=== PATIENT | male | born 1990 | race Caucasian/White ===

== ENCOUNTER 2016-11-13 19:56 | Emergency (ER) | payer OTHER ==
[~2016-11-13 19:56] MED LIST: ALPRAZOLAM0.5 M3 PO; ALPRAZOLAM0.5 MG PO; ALPRAZOLAM1 M2 PO; AUGMENTIN 875875 MG PO; CLONAZEPAM0.5 MG PO; ESCITALOPRAM OX20 MG; LEXAPRO 20MG M20 MG PO; LORAZEPAM1 MG PO; MULTIVITAMIN1 TAB PO; PHENERGAN25 M2 PO; SERTRALINE HYD100 MG PO; TYLENOL XSTR500 MG PO; ZOFRAN ODT4 MG PO; ZOFRAN4 M2 PO
[2016-11-13 20:10] VITALS: BP 146/82
--- NOTE | 2016-11-13 21:09 | ED GI/GU/ABDOMINAL COMPLAINT ---
History of Present Illness General Chief Complaint: Male Genitourinary Problems Stated Complaint: MULTIPLE COMPLAINTS Source: patient Exam Limitations: no limitations Vital Signs & Intake/Output Vital Signs & Intake/Output Vital Signs Date Time Temp Pulse Resp B/P Pulse O2 O2 Flow FiO2 Ox Delivery Rate 11/13 2009 97.6 80 22 146/82 98 Allergies Coded Allergies: cephalexin (UNKNOWN PER PT 11/17/15) ciprofloxacin (From CIPRO) (BAD STOMACH ACHE, DIZZY 11/17/15) sulfamethoxazole (From Bactrim) (STOMACH UPSET AND HEADACHE 11/17/15) trimethoprim (From Bactrim) (STOMACH UPSET AND HEADACHE 11/17/15) Reconcile Medications Alprazolam 1 MG TABLET 1 TAB PO BID ANXIETY (Reported) Augmentin (Augmentin 500-125 Tablet) 500 MG-125 MG TABLET 1 TAB PO BID UTI Escitalopram Oxalate (Unknown Strength) TABLET (Unknown Dose) UNKNOWN ( Reported) Ondansetron HCl (Zofran) (Unknown Strength) TABLET (Unknown Dose) PO ONCE NAUSEA (Reported) Promethazine HCl (Phenergan) 25 MG SUPP.RECT 1 TAB PO Q8H PRN NAUSEA PLEASE PROVIDE ORAL TABLETS, NOT SUPPOSITORY Triage Note: PER PT HAD FLU LIKE SYMPTOMS X 3 WEEKS 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 NOW FEELING NO ENERGY. Triage Nurses Notes Reviewed? yes Onset: Gradual Duration: constant Timing: recent history Quality/Severity: mild Severity Numbers: 3 Location: urethral Radiation: no radiation HPI: Patient is a 26-year-old male with a unremarkable past medical history presents emergency and that the past 4 days patient had gradual onset of white milky urethral discharge testicular discomfort and dysuria and pain with urination. Patient has been sexually active with multiple partners using unprotected sex Denies any fever or chills abdominal pain nausea vomiting. (BALDO MCARTHUR) Past History Travel History Traveled to [place] past 21 day No Medical History Any Pertinent Medical History? 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 No (BALDO MCARTHUR) Review of Systems Review of Systems Constitutional: Reports: no symptoms. EENTM: Reports: no symptoms. Respiratory: Reports: no symptoms. Cardiovascular: Reports: no symptoms. GI: Reports: no symptoms. Genitourinary: Reports: see HPI, dysuria. Musculoskeletal: Reports: no symptoms. Skin: Reports: no symptoms. Neurological/Psychological: Reports: no symptoms. Hematologic/Endocrine: Reports: no symptoms. Immunologic/Allergic: Reports: no symptoms. 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 Cardiovascular: Regular rate and rhythms no murmurs rubs or gallops, normal JVP Respiratory: Chest nontender. No respiratory distress.breath sounds clear to auscultation bilaterally Abdomen: Soft, nontender nondistended, no appreciable organomegaly. Normal bowel sounds. No ascites Extremity: No edema, no calf tenderness to palpation, normal and equal pulses. Neuro: Alert oriented x3, motor sensory normal, Skin: No appreciable rash on exposed skin, skin is warm and dry. Psych: Mood and affect is normal, memory and judgment is normal. Core Measures ACS in differential dx? No Severe Sepsis Present: No Septic Shock Present: No (BALDO MCARTHUR) Progress Differential Diagnosis: AAA, AMI, appendicitis, biliary colic, bowel obstruction , colon cancer, cholecystitis, diverticulitis, epididymitis, esophageal varices, gastritis, hepatitis, hernia, hemorrhoids, ischemic bowel, inflamm bowel dis, Ginger-Manan tear, orchitis, pancreatitis, prostatitis, peptic ulcer, PUD/GERD, perforated viscous, pyelonephritis, SBO, STD, testicular torsion, ureterolithiasis, urinary retention, urethritis, UTI/pyelo Plan of Care: Orders Procedure Date/time Status CULTURE,URINE 11/14 2011 Active CHLAMYDIA-GC DNA PROBE 11/14 2011 Active URINALYSIS 11/14 2011 Complete Laboratory Tests 11/13/16 2041: Urine Color YEL, Urine Clarity CLEAR, Urine pH 6.0, Ur Specific [place] 1.025, Urine Protein NEG, Urine Ketones NEG, Urine Nitrite NEG, Urine Bilirubin NEG, Urine Urobilinogen 0.2, Ur Leukocyte Esterase TRACE H, Ur Microscopic SEDIMENT EXAMINED, Urine RBC RARE, Urine WBC 25-50 H, Ur Epithelial Cells FEW, Urine Bacteria FEW H, Urine Hemoglobin TRACE-INTACT H, Urine Glucose NEG Microbiology 11/13 2040 URINE ROUT: GC DNA Probe - RECD 11/13 2040 URINE ROUT: Chlamydia DNA Probe (ISABELA) - RECD 11/13 2040 URINE ROUT: Urine Culture - RECD Patient currently is in no apparent distress no signs at this time of testicular torsion. Patient will be treated prophylactically for concerns of gonorrhea and chlamydia and will be treated for UTI and was strongly advised to follow-up with culture results and if urine tract infection was persistent to follow up with urology and he will comply. (BALDO MCARTHUR) Initial ED EKG: none (BALDO MCARTHUR) Departure Departure Disposition: HOME OR SELF CARE Condition: Stable Clinical Impression Primary Impression: STD (male) Secondary Impressions: UTI (urinary tract infection) Referrals: YUMIKO PAGE,KERRI Caruso (PCP/Family) ADINA BRAUN MD Additional Instructions: As discussed begin the prescription of Augmentin as directed for the full course. YOU had received azithromycin and Rocephin in the emergency room for your symptoms. Please do not participate in sexual activities for 7 or more days. Please use protection when having sex. If symptoms worsen return to the emergency room. If no better in one week follow-up with urologist Dr. Braun. If positive for your test please let your partners know so they can be treated Departure Forms: Customer Survey General Discharge Information Prescriptions: Current Visit Scripts Augmentin (Augmentin 500-125 Tablet) 1 TAB PO BID #14 TAB (BALDO MCARTHUR) PA/SNACK STEWARDESS Co-Sign Statement Statement: ED Attending supervision documentation- [] I saw and evaluated the patient. I have also reviewed all the pertinent lab results and diagnostic results. I agree with the findings and the plan of care as documented in the PA's/SNACK STEWARDESS's documentation. [X] I have reviewed the ED Record and agree with the PA's/SNACK STEWARDESS's documentation. [] Additions or exceptions (if any) to the PAs/SNACK STEWARDESS's note and plan are summarized below: [] (SHERMAN PAGE,DORIS Killian)
[2016-11-13] MEDS ORDERED: AUGMENTIN 500-1 EACH PO (21:43)
== END 2016-11-13 21:57 ==
LOC: ERH 19:56
DX: N39.0 Urinary tract infection, site not specified (principal); A64 Unspecified sexually transmitted disease
CPT/HCPCS: 81001; 87086; 87491; 87591; 96372; J0456; J0696

== ENCOUNTER 2016-12-21 10:00 | Emergency (ER) | payer OTHER ==
[~2016-12-21] VITALS: Ht 185.4 cm; Wt 136.1 kg
[~2016-12-21 10:00] MED LIST changes: +AUGMENTIN 500-1 EACH PO
[2016-12-21 10:27] VITALS: BP 124/73
--- NOTE | 2016-12-21 11:20 | ED SYNCOPE COMPLAINT ---
History of Present Illness General Chief Complaint: Syncope and Near-Syncope Stated Complaint: BIBA SYNCOPE Source: patient, old records, EMS Exam Limitations: no limitations Vital Signs & Intake/Output Vital Signs & Intake/Output Vital Signs Date Time Temp Pulse Resp B/P B/P Pulse O2 O2 Flow FiO2 Mean Ox Delivery Rate 12/21 1027 97.8 80 15 124/73 97 Room Air Room Air Allergies Coded Allergies: cephalexin (UNKNOWN PER PT 12/21/16) ciprofloxacin (From CIPRO) (BAD STOMACH ACHE, DIZZY 12/21/16) sulfamethoxazole (From Bactrim) (STOMACH UPSET AND HEADACHE 12/21/16) trimethoprim (From Bactrim) (STOMACH UPSET AND HEADACHE 12/21/16) Reconcile Medications Alprazolam 1 MG TABLET 1 TAB PO BID ANXIETY (Reported) Augmentin (Augmentin 500-125 Tablet) 500 MG-125 MG TABLET 1 TAB PO BID UTI Doxycycline Hyclate (Vibramycin) 100 MG CAPSULE 1 CAP PO BID sinusitis Escitalopram Oxalate (Unknown Strength) TABLET (Unknown Dose) UNKNOWN ( Reported) Ondansetron HCl (Zofran) (Unknown Strength) TABLET (Unknown Dose) PO ONCE NAUSEA (Reported) Promethazine HCl (Phenergan) 25 MG SUPP.RECT 1 TAB PO Q8H PRN NAUSEA PLEASE PROVIDE ORAL TABLETS, NOT SUPPOSITORY Triage Note: PT TO ED FOR SYNCOPAL EPISODE AT WORK, PT HAS BEEN FEELING WEAK AND TIRED FOR A COUPLE OF WEEKS, PT HAS CHRONIC SINUSITIS AND REPORTS BEING SICK RECENTLY AND EVER SINCE THEN HAS BEEN HAVING INTERMITTENT FEELINGS LIKE HE IS GOING TO PASS OUT. PT REPORTS TODAY IS THE FIRST TIME PT HAS ACTUALLY PASSED OUT. PT STATES HE FEELS LIKE HIS HEART STOPS BEATING AND THEN HE "GETS AN ELECTRIC SHOCK" AND THEN FEELS LIKE HE'S GOING TO PASS OUT. Triage Nurses Notes Reviewed? yes HPI: Patient is a 26-year-old male presents complaining of syncopal episode. Patient was sitting at work when the syncopal episode occurred. Patient reports that he awoke today feeling fatigued, anxious. Patient has been lightheaded for a couple of hours at work, lightheadedness became severe for approximately 10 seconds, had a room spinning sensation and have the syncopal episode while sitting in the guard station. Patient believes he was unconscious for a few seconds. Patient reports he has had multiple syncopal episodes previously. Patient had a Holter monitor ordered by his primary care doctor which was reportedly unremarkable. Patient has not seen a hospital supervisor previously. Patient has been on Augmentin for sinusitis with no improvement. Patient denies chest pain, illicit substance use. Past History Travel History Traveled to [place] past 21 day No Medical History Any Pertinent Medical History? 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 No Review of Systems Review of Systems Constitutional: Reports: malaise, weakness. Denies: chills, fever. EENTM: Reports: no symptoms. Respiratory: Denies: cough, short of breath. Cardiovascular: Reports: see HPI. GI: Denies: abdominal pain, nausea, vomiting. Genitourinary: Reports: no symptoms. Musculoskeletal: Reports: no symptoms. Skin: Reports: no symptoms. Neurological/Psychological: Reports: no symptoms. Physical Exam Physical Exam General Appearance: well developed/nourished, alert, awake Head: atraumatic, normal appearance Eyes: Bilateral: normal appearance, PERRL, EOMI. Ears, Nose, Throat: Clear fluid posterior to the tympanic membranes. Bilateral maxillary sinus tenderness Neck: normal inspection, supple, full range of motion Respiratory: normal breath sounds, chest non-tender, no respiratory distress, lungs clear Cardiovascular: regular rate/rhythm (no appreciable murmur) Gastrointestinal: normal bowel sounds, soft, non-tender Back: normal inspection, normal range of motion Extremities: normal inspection, normal capillary refill, normal range of motion, no edema, no calf tenderness Psychiatric: awake, alert, oriented x 3 Cranial Nerves: normal hearing, normal speech, PERRL Coordination/Gait: normal gait Motor/Sensory: no motor/sensory deficits Skin: intact, normal color, warm/dry Core Measures ACS in differential dx? Yes ASA ordered for poss ACS? No-ACS ruled out CVA/TIA Diagnosis: No Severe Sepsis Present: No Septic Shock Present: No Progress Differential Diagnosis: AMI, aortic dissection, aortic valve, drug induced syncope, hyperventilation, orthostatic syncope, other valvular disease, pericardial tamponade, pulmonary embolus, seizure, sick sinus syndrome, subarachnoid hem., TIA/CVA, vasodepressor syncope, ventricular tach/fib Plan of Care: Orders Procedure Date/time Status MISTAKE 12/21 1134 Active Telemetry/Shuttle Driver 12/21 1134 Active TROPONIN LEVEL 12/21 1134 Complete COMPREHENSIVE METABOLIC PANEL 12/21 1134 Complete CBC WITHOUT DIFFERENTIAL 12/21 1134 Complete EKG 12/21 1004 Active Laboratory Tests 12/21/16 1151: Anion Gap 10, Estimated GFR > 60, BUN/Creatinine Ratio 18.6, Glucose 86, Calcium 9.3, Total Bilirubin 0.5, AST 30, ALT 65, Alkaline Phosphatase 64, Troponin I < 0.01, Total Protein 6.8, Albumin 4.3, Globulin 2.5, Albumin/Globulin Ratio 1.7, CBC w Diff NO MAN DIFF REQ, RBC 5.22, MCV 82.7, MCH 28.5, RDW 12.5, MPV 9.8, Gran % 58.3, Lymphocytes % 33.4, Monocytes % 7.1, Eosinophils % 0.9, Basophils % 0.3, Absolute Granulocytes 4.3, Absolute Lymphocytes 2.5, Absolute Monocytes 0.5 , Absolute Eosinophils 0.1, Absolute Basophils 0, PUBS MCHC 34.4 Results of labs, EKG, cardiac catheterization technician discussed with patient. Patient appears stable for discharge with follow-up with his primary care doctor and cardiology. (KARTIK GOODEN,LEANDRO) Initial ED EKG: normal axis, normal intervals, normal p-waves, normal QRS complex, normal sinus rhythm, no ST T wave changes Rhythm Strip: normal sinus rhythm Departure Departure Disposition: HOME OR SELF CARE Condition: Stable Clinical Impression Primary Impression: Syncope Secondary Impressions: Sinusitis Referrals: SYLVIA PAEG,BRITT BAEZ MD,TERESA CALDERON MD,KERRI Caruso (PCP/Family) Additional Instructions: Follow up with your primary doctor for further evaluation. Call today for appointment. Also contact Dr. Jasmine for further evaluation of your recurrent sinusitis. Provided is the information for Dr. Baez(cadiologist) that you may follow up with for further evaluation. Return to the ER if chest pain, difficulty breathing or worsening of symptoms. Departure Forms: Customer Survey General Discharge Information Prescriptions: Current Visit Scripts Doxycycline Hyclate (Vibramycin) 1 CAP PO BID #14 CAP
[2016-12-21 12:13] LABS: ABSOLUTE BASOPHIL COUNT 0 /CUMM (0.0-0.2); ABSOLUTE EOSINOPHIL COUNT 0.1 /CUMM (0.0-0.7); ABSOLUTE GRANULOCYTE CT 4.3 /CUMM (1.4-6.5); ABSOLUTE LYMPH COUNT 2.5 /CUMM (1.2-3.4); ABSOLUTE MONOCYTE COUNT 0.5 /CUMM (0.10-0.60); BASOPHIL % 0.3 % (0.0-2.0); EOSINOPHIL % 0.9 % (0-5); GRANULOCYTE % 58.3 % (42.2-75.2); HEMATOCRIT 43.2 % (42-52); MEAN CORPUSCULAR HGB 28.5 PG (27.0-31.0); MEAN CORPUSCULAR HGB CONC 34.4 G/DL (33.0-37.0); MEAN CORPUSCULAR VOLUME 82.7 FL (80.0-94.0); MEAN PLATELET VOLUME 9.8 FL (7.4-10.4); PLATELET COUNT 197 /CUMM (130-400); RBC DISTRIBUTION WIDTH 12.5 % (11.5-14.5); RED BLOOD CELL CT 5.22 /CUMM (4.70-6.10); WHITE BLOOD CELL COUNT 7.4 /CUMM (4.8-10.8)
[2016-12-21] MEDS ORDERED: VIBRAMYCIN100 MG PO (13:39)
== END 2016-12-21 14:06 ==
LOC: ERH 10:00
PROVIDERS: Physician Assistant
DX: R55 Syncope and collapse (principal); J32.9 Chronic sinusitis, unspecified; F17.290 Nicotine dependence, other tobacco product, uncomplicated
CPT/HCPCS: 93005; 93010